=== PATIENT | male | born 1965 | race Caucasian/White ===

== ENCOUNTER 2025-04-27 06:57 | Outpatient (CLI) | payer MEDICARE, MEDICAID ==
[~2025-04-27] VITALS: Ht 188 cm; Wt 108.9 kg
[2025-04-27] MEDS: albuterol 2.5 MG/3 ML nebule NEB ONE (08:11)
[2025-04-27 08:12] VITALS: PULSE 92; RESP 16; O2SAT 96
[2025-04-27 08:27] VITALS: PULSE 86; RESP 12
--- NOTE | 2025-05-02 16:52 | PROCEDURE NOTE - Respiratory ---
Procedure Note-Respiratory Providers to Copies To 1: HAL,MOHLUKE Green Procedure Name: This is a complete pulmonary function study dated April 27, 2025. Spirometry measurements: Both the forced vital capacity and the FEV1 show significant reduction. The FEV1 ratio however is elevated. All of the flow rate measurements are normal with the exception of the FEF maximum which is somewhat reduced. There is no change after bronchodilator was administered. The lung volume measurements show symmetric reduction in all the major lung volumes. They are all measuring in the 60-65% range. This indicates a significant restrictive ventilatory defect. Lung diffusion measurement: The DLCO measurement is reduced. However the KVO measurement appears to be normal. It is the alveolar volume measurement that is significantly reduced at 51% predicted value. Airway resistance measurement: The airway resistance is normal. Conclusion: This study is abnormal. There is evidence for a significant restrictive ventilatory defect. These findings are consistent with the pat ient's diagnosis of pulmonary fibrosis which frequently leads to a restrictive deficit. The DLCO measurement is reduced but the KVO determination is actually normal. The alveolar volume measurement is clearly reduced. We have no previous studies for comparison on this patient. ADITI MCMULLEN MD May 02, 2025 16:52
== END 2025-04-27 23:59 | disposition home or self-care (01) ==
LOC: RT 06:57
PROVIDERS: ATTEND Internal Medicine Pulmonary Disease
DX: J84.10 Pulmonary fibrosis, unspecified (principal); I71.20 Thoracic aortic aneurysm, without rupture, unspecified; J43.9 Emphysema, unspecified; J30.9 Allergic rhinitis, unspecified; J70.9 Respiratory conditions due to unspecified external agent; R91.8 Other nonspecific abnormal finding of lung field; I12.0 Hypertensive chronic kidney disease with stage 5 chronic kidney disease or end stage renal disease; N18.5 Chronic kidney disease, stage 5; E11.22 Type 2 diabetes mellitus with diabetic chronic kidney disease; E03.9 Hypothyroidism, unspecified; J96.01 Acute respiratory failure with hypoxia; E66.9 Obesity, unspecified; Z93.1 Gastrostomy status; Z99.81 Dependence on supplemental oxygen; Z79.01 Long term (current) use of anticoagulants; Z79.4 Long term (current) use of insulin; Z86.16 Personal history of COVID-19
CPT/HCPCS: 94060; 94727; 94729; 94760